=== PATIENT | male | born 1955 | race Caucasian/White ===

== ENCOUNTER 2017-04-18 10:15 | Emergency (ER) | payer OTHER ==
[2017-04-18 10:22] VITALS: RESP 16; TEMP 98.2
--- NOTE | 2017-04-18 11:13 | EDPHY ---
H & P Stated Complaint: hit the top of his head last week. sent from urgent care Time Seen by Provider: 04/18/17 11:01 HPI/ROS: CHIEF COMPLAINT: Vertigo HISTORY OF PRESENT ILLNESS: The patient is a 61-year-old man who hit his head on the bottom of the counter when standing up on Thursday. Since that time he has had mild vertigo and some imbalance. He played golf the next day and worked out. He has been going to work. No focal weakness or numbness. No headaches. No fever. No nausea vomiting. No vision changes. He presented to the urgent care today who recommended he come here for CT scan. REVIEW OF SYSTEMS: Constitutional: denies: chills, fever, recent illness, recent injury EENTM: denies: blurred vision, double vision, nose congestion Respiratory: denies: cough, shortness of breath Cardiac: denies: chest pain, irregular heart rate, lightheadedness, palpitations Gastrointestinal/Abdominal: denies: abdominal pain, diarrhea, nausea, vomiting, blood streaked stools Genitourinary: denies: dysuria, frequency, hematuria, pain Musculoskeletal: denies: joint pain, muscle pain Skin: denies: lesions, rash, jaundice, bruising Neurological: denies: headache, numbness, paresthesia, tingling, dizziness, weakness Hematologic/Lymphatic: denies: blood clots, easy bleeding, easy bruising Immunologic/allergic: denies: HIV/AIDS, transplant EXAM: GENERAL: Well-appearing, well-nourished and in no acute distress. HEAD: Atraumatic, normocephalic. EYES: Mild nystagmus primarily to the right. Intermittent, fatigable. Pupils equal round and reactive to light, extraocular movements intact, sclera anicteric, conjunctiva are normal. ENT: TMs normal, nares patent, oropharynx clear without exudates. Moist mucous membranes. NECK: Normal range of motion, supple without lymphadenopathy or JVD. LUNGS: Breath sounds clear to auscultation bilaterally and equal. No wheezes rales or rhonchi. HEART: Regular rate and rhythm without murmurs, rubs or gallops. ABDOMEN: Soft, nontender, normoactive bowel sounds. No guarding, no rebound. No masses appreciated. BACK: No CVA tenderness, no spinal tenderness, step-offs or deformities EXTREMITIES: Normal range of motion, no pitting or edema. No clubbing or cyanosis. NEUROLOGICAL: Cranial nerves II through XII grossly intact. Normal speech, normal gait. Some difficulty with heel to toe. 5/5 strength, normal movement in all extremities, normal sensation PSYCH: Normal mood, normal affect. SKIN: Warm, dry, normal turgor, no visible rashes or lesions. Source: Patient Exam Limitations: No limitations - Personal History Current Tetanus/Diphtheria Vaccine: Unsure Current Tetanus Diphtheria and Acellular Pertussis (TDAP): Unsure - Medical/Surgical History Hx Asthma: No Hx Chronic Respiratory Disease: No Hx Diabetes: No Hx Cardiac Disease: No Hx Renal Disease: No Hx Cirrhosis: No Hx Alcoholism: No Hx HIV/AIDS: No Hx Splenectomy or Spleen Trauma: No Other PMH: knee surgery - Family History Significant Family History: No pertinent family hx - Social History Smoking Status: Never smoked Alcohol Use: Sober Drug Use: None Constitutional: Initial Vital Signs Temperature (C) 36.8 C 04/18/17 10:19 Heart Rate 58 L 04/18/17 10:19 Respiratory Rate 16 04/18/17 10:19 Blood Pressure 155/90 H 04/18/17 10:19 O2 Sat (%) 96 04/18/17 10:19 O2 Delivery Mode Room Air Allergies/Adverse Reactions: No Known Allergies Allergy (Unverified 04/18/17 10:23) Medical Decision Making - Diagnostics Imaging Results: Imaging Impressions Head CT 04/18/17 11:10 Impression: Normal noncontrast CT of the brain. Results called to Dr. Vivek Solis at 12:10 PM at the time of the interpretation. Imaging: Discussed imaging studies w/ call box wirer Radiologist ED Course/Re-evaluation: We discussed the CT results. The patient is reassured. He has symptoms consistent with concussion. I advised rest 48 hours and stepwise return to activity. I will refer him to the concussion Clinic. He is happy with this plan and declines further workup or testing. Head CT ordered in this adult patient for trauma for the following indication: Continued imbalance several days after traumatic injury Differential Diagnosis: Partial list of the Differential diagnosis considered include but were not limited to; concussion, intracranial injury and although unlikely based on the history and physical exam, I also considered neck injury, CVA, hemorrhage, fracture. I discussed these differential diagnoses and the plan with the patient as well as the usual and expected course. The patient understands that the diagnosis is provisional and that in medicine we are not always correct and that further workup is often warranted. Usual and customary warnings were given. All of the patient's questions were answered. The patient was instructed to return to the emergency department should the symptoms at all worsen or return, otherwise to followup with the physician as we discussed. Departure - Departure Disposition: Home, Routine, Self-Care Clinical Impression: Concussion Qualifiers: Encounter type: initial encounter Loss of consciousness presence/duration: without LOC Qualified Code(s): S06.0X0A - Concussion without loss of consciousness, initial encounter Condition: Fair Instructions: Concussion (ED) Referrals: Fabiano Leger MD [Primary Care Provider] - As per Instructions
[2017-04-18 12:52] VITALS: BP 124/79; PULSE 54; O2SAT 95
== END 2017-04-18 12:51 | disposition home or self-care (01) ==
DX: S06.0X0A Concussion without loss of consciousness, initial encounter (principal); W22.8XXA Striking against or struck by other objects, initial encounter